=== PATIENT | male | born 1950 | race Caucasian/White ===

== ENCOUNTER 2016-03-07 09:25 | Emergency (ER) | payer MEDICARE, OTHER ==
[~2016-03-07] VITALS: Ht 177.8 cm; Wt 98.5 kg
[~2016-03-07 09:25] MED LIST: EPIP0.3I IM; LISI-360 PO; PRED20 PO; VYTO10TA29 PO; WAL-10TA2 PO
[2016-03-07 09:37] VITALS: BP 122/99; PULSE 100; RESP 16; TEMP 98.4; O2SAT 98
[2016-03-07] MEDS ORDERED: EPIP0.3I IM (10:09)
[2016-03-07] MEDS ORDERED: LISI10TA3 PO (10:09)
[2016-03-07] MEDS ORDERED: SIMV20TA PO (10:09)
[2016-03-07] MEDS ORDERED: TEST1INJ3 IM (10:09)
[2016-03-07] MEDS ORDERED: CLINDAMYCIN PHOS 600 MG/4 ML VIAL IM ONE (11:30)
[2016-03-07] MEDS ORDERED: TETANUS/DIPHTHERIA TOXOID ADULT 0.5 ML VIAL IM ONE (11:30)
[2016-03-07 11:55] VITALS: BP 114/81; PULSE 89; RESP 17; O2SAT 97
[2016-03-07] MEDS ORDERED: CLIN1CAP5 PO (12:02)
[2016-03-07] MEDS ORDERED: BACT800T5 PO (12:02)
[2016-03-07] MEDS ORDERED: ULTR50TA5 PO (12:03)
--- NOTE | 2016-03-07 12:04 | PD ---
HPI Chief Complaint: Edema Time Seen by Provider: 11:19 Travel History International Travel<30 days: No Contact w/Intl Traveler<30days: No Traveled to known affect area: No History of Present Illness HPI 65 years old male complains of pain swelling right knee. Patient gave himself a testosterone injection frequently. Patient states that he injected test also on the right thigh several days ago. Patient started having some redness swelling tenderness on the right thigh above the right knee. Patient states that the the pain is burning pain localized right above and lateral aspect the right knee. Patient denies any pain radiation. Patient states the pain is worse with bending of the right knee. Patient denies any fever chills. Patient denies any recent injury. Patient denies any broken needle to the area. Patient's not up-to-date with TD booster. On a scale of 1-10 the pain is a 7. PFSH Past Medical History Autoimmune Disease: No Anxiety: No Depression: No Cancer: No Cardiovascular Problems: No High Cholesterol: Yes Diminished Hearing: No Endocrine: No Genitourinary: No Hypertension: Yes Musculoskeletal: No Neurologic: No Psychiatric: No Respiratory: No Tetanus Vaccination: < 5 Years Influenza Vaccination: No Past Surgical History Other Surgery: Yes Social History Alcohol Use: Yes (3-2 DRINKS OF LIQUOR A DAY) Tobacco Use: Yes (1 PPD) Substance Use: No Allergies-Medications (Allergen,Severity, Reaction): Coded Allergies: Bees (Verified Allergy, Severe, Anaphylaxis, 03/07/16) Penicillin (Verified Allergy, Severe, SHORTNESS OF BREATH, 03/07/16) Reported Meds & Prescriptions Reported Meds & Active Scripts Active Reported Testosterone Cypionate Inj (Testosterone Cypionate) 100 Mg/Ml Inj Unknown Dose IM DIRECTED Epipen 2-Peter Inj (Epinephrine) 0.3 Mg/0.3 Ml Pfpen 0.3 Mg IM ONCE PRN Simvastatin 20 Mg Tab 20 Mg PO HS Lisinopril 10 Mg Tab 10 Mg PO DAILY Review of Systems General / Constitutional: No: Fever Eyes: No: Visual changes HENT: No: Headaches Cardiovascular: No: Chest Pain or Discomfort Respiratory: No: Shortness of Breath Gastrointestinal: No: Abdominal Pain Genitourinary: No: Dysuria Musculoskeletal: Positive: Pain Skin: No Rash Neurologic: No: Weakness Psychiatric: No: Depression Endocrine: No: Polydipsia Hematologic/Lymphatic: No: Easy Bruising Physical Exam Narrative GENERAL: Well-nourished, well-developed patient. SKIN: Warm and dry. HEAD: Normocephalic. EYES: No scleral icterus. No injection or drainage. NECK: Supple, trachea midline. No JVD or lymphadenopathy. CARDIOVASCULAR: Regular rate and rhythm without murmurs, gallops, or rubs. RESPIRATORY: Breath sounds equal bilaterally. No accessory muscle use. GASTROINTESTINAL: Abdomen soft, non-tender, nondistended. MUSCULOSKELETAL: No cyanosis, or edema. BACK: Nontender without obvious deformity. No CVA tenderness. Patient has an area redness swelling tenderness superior anterior lateral to the distal right thigh. No induration. No joint involvement. No tenderness on flexion-extension of the knee joint. No joint effusion noted. No tenderness posterior aspect the right thigh on the right calf area. Negative Homans sign. Data Data Last Documented VS Vital Signs Date Time Temp Pulse Resp B/P Pulse Ox O2 Delivery O2 Flow Rate FiO2 03/07/16 11:55 89 17 114/81 97 Room Air 03/07/16 09:37 98.4 Orders Clindamycin Inj (Cleocin Inj) (03/07/16 11:30) Tetanus/Diphtheria Tox Adult (Tetanus/Di (03/07/16 11:30) MDM Medical Decision Making Medical Screen Exam Complete: Yes Emergency Medical Condition: Yes Differential Diagnosis Differential diagnosis including cellulitis, abscess, septic joint Narrative Course 65 years old male with pain swelling redness right thigh. No evidence of joint involvement. TD booster given. Clindamycin 60 mg IM given. Diagnosis Primary Impression: Cellulitis of right leg Patient Instructions: General Instructions Additional Instructions: Take medications as directed. Warm compress. Return in 2 days for recheck. Return sooner if worsening condition. Med/Other Pt SpecificInfo: Prescription(s) given Scripts Tramadol (Ultram)50 Mg Tab50 Mg PO Q6H PRN (PAIN) #20 TAB Prov:Giovany Kurtz MD 03/07/16 Clindamycin 150 Mg Cap2 Tab PO Q6H #80 CAP Prov:Giovany Kurtz MD 03/07/16 Sulfamethoxazole-Trimethoprim (Bactrim DS)800-160 Mg Tab1 Tab PO BID #20 TAB Prov:Giovany Kurtz MD 03/07/16 Disposition: 01 DISCHARGE HOME Condition: Stable Giovany Kurtz MD Mar 07, 2016 12:04
== END 2016-03-07 12:11 | disposition home or self-care (01) ==
LOC: PHED 09:25
DX: L03.115 Cellulitis of right lower limb (principal); E78.00 Pure hypercholesterolemia, unspecified; I10 Essential (primary) hypertension; Z23 Encounter for immunization
CPT/HCPCS: 90471; 90714; 96372